=== PATIENT | male | born 1985 | race Hispanic/Latino ===

== ENCOUNTER 2018-11-22 14:26 | Emergency (ER) | payer SELFPAY ==
[2018-11-22] MEDS ORDERED: ATIVAN IV PRN (14:49)
--- NOTE | 2018-11-22 14:53 | Emergency Department Report ---
ED Alcohol HPI - General Chief Complaint: Alcohol Stated Complaint: DETOX Time Seen by Provider: 11/22/18 14:37 Source: patient Mode of arrival: Ambulatory Limitations: No Limitations - History of Present Illness Initial Comments: 33-year-old male with a past medical history of lupus, htn, antiphospholipid syndrome currently on Eliquis, liver disease, previous DVT/PE, "enlarged heart," hypertension, and alcohol abuse presents to the hospital requesting alcohol detox. Patient states he's been in and out of multiple hospitals recently with detox request. He states most recently he was at [facility] on November 14 it was provided a 30 day supply of Eliquis for his antiphospholipid syndrome. Patient typically drinks liquor daily and his last drink was about a half a gallon of vodka yesterday. Patient states he has not been accepted to inpatient detox programs to his lack of insurance. He was recently accepted to outpatient detox program and was scheduled to start treatment on the . She has a clear alcohol withdrawal tremors and seizures. Patient does not have any pain. Pt apparently takes a lot of meds but can not recall all the names or doses. - Related Data Home Medications Medication Instructions Recorded Confirmed Last Taken Apixaban [Eliquis] 5 mg PO BID 11/22/18 11/22/18 Unknown Famotidine [Pepcid] 20 mg PO BID 11/22/18 11/22/18 Unknown Lisinopril [Zestril] 20 mg PO QDAY 11/22/18 11/22/18 Unknown Metoprolol [Lopressor] 100 mg PO BID 11/22/18 11/22/18 Unknown amLODIPine [Norvasc] 5 mg PO DAILY 11/22/18 11/22/18 Unknown Allergies Allergy/AdvReac Type Severity Reaction Status Date / Time No Known Allergies Allergy Verified 11/22/18 15:57 ED Review of Systems ROS: Stated complaint: DETOX Other details as noted in HPI Comment: All other systems reviewed and negative ED Past Medical Hx - Past Medical History Hx Hypertension: Yes Hx Deep Vein Thrombosis: Yes Hx Pulmonary Embolism: Yes Hx Liver Disease: Yes Additional medical history: lupus. Antiphospholipid syndrome. liver dz. enlarged heart. alcohol abuse - Surgical History Past Surgical History?: No - Social History Smoking Status: Unknown if ever smoked Substance Use Type: Alcohol - Medications Home Medications: Home Medications Medication Instructions Recorded Confirmed Last Taken Type Apixaban [Eliquis] 5 mg PO BID 11/22/18 11/22/18 Unknown History Famotidine [Pepcid] 20 mg PO BID 11/22/18 11/22/18 Unknown History Lisinopril [Zestril] 20 mg PO QDAY 11/22/18 11/22/18 Unknown History Metoprolol [Lopressor] 100 mg PO BID 11/22/18 11/22/18 Unknown History amLODIPine [Norvasc] 5 mg PO DAILY 11/22/18 11/22/18 Unknown History ED Physical Exam - General Limitations: No Limitations - Other Other exam information: General: No limitations, patient is alert in no acute distress Head exam: Atraumatic, normocephalic Eyes exam: Normal appearance, pupils equal reactive to light, extraocular movements intact ENT: Moist mucous membrane Neck exam: Normal inspection, full range of motion, no meningismus nontender Respiratory exam: Clear to auscultation bilateral, no wheezes, rales, crackles Cardiovascular: Normal rate and rhythm, normal heart sounds Abdomen: Soft, nondistended, and nontender, with normal bowel sounds, no rebound, or guarding Extremity: Full range of motion normal inspection no deformity Back: Normal Inspection, full range of motion, no tenderness Neurologic: Alert, oriented x3, cranial nerves intact, no motor or sensory deficit, intention tremor noted Psychiatric: normal affect, normal mood Skin: Warm, dry, intact ED Course Vital Signs 11/22/18 11/22/18 11/22/18 14:43 15:51 17:24 Temperature 98 F Pulse Rate 117 H 112 H 119 H Respiratory 16 16 16 Rate Blood Pressure 137/95 146/89 150/93 [Left] O2 Sat by Pulse 96 93 95 Oximetry 11/22/18 11/22/18 18:19 19:12 Temperature Pulse Rate 117 H 125 H Respiratory 18 16 Rate Blood Pressure 195/111 [Left] O2 Sat by Pulse 96 96 Oximetry - Reevaluation(s) Reevaluation #1: 11/22/18 19:20 Patient remained tachycardic but has not been receiving Ativan and aggressive CIWA protocol assessments as ordered. I encouraged has to assess as ordered every hourly for stabilization of tachycardia and alcohol withdrawal symptoms. Patient was evaluated by mental health provider and would not endorse or deny suicidal ideation and therefore will be staffed with psychiatrist tomorrow. In the meantime we will continue [facility] protocol and monitoring for alcohol withdrawal symptoms 11/22/18 19:26 blood alcohol not initially ordered (no anion gap on bmp to suggest etoh intoxication) 11/22/18 19:44 Patient remains tachycardic but he also now states that he thinks he takes metoprolol. Patient takes Eliquis, lisinopril, metoprolol, and other medication that he cannot recall the name or the doses. Metoprolol 50 mg lisinopril 20 mg ordered since persistent tachycardia may be secondary to beta katy withdrawal. Patient states he did not take any of his medications today. Nurse will attempt to reach out to pharmacy or assist patient in reaching out to pharmacy to obtain his medication list. 11/22/18 20:12 Patient's home as obtained and that was updated. total of metoprolol 100 mg ordered since the patient standard dose twice a day. - Consultations Consultation #1: 11/22/18 19:21 Mental health provider Leslie evaluated patient and will staff a psychiatrist since patient does not endorse or deny suicidal ideation. ED Medical Decision Making - Lab Data Result diagrams: 11/22/18 14:40 11/22/18 14:46 Lab Results 11/22/18 11/22/18 11/22/18 Range/Units 14:37 14:40 14:46 WBC 6.9 (4.5-11.0) K/mm3 RBC 4.96 (3.65-5.03) M/mm3 Hgb 16.4 H (11.8-15.2) gm/dl Hct 47.6 H (35.5-45.6) % MCV 96 H (84-94) fl MCH 33 H (28-32) pg MCHC 35 H (32-34) % RDW 13.1 L (13.2-15.2) % Plt Count 239 (140-440) K/mm3 Lymph % (Auto) 44.2 H (13.4-35.0) % M[place]ormick % (Auto) 8.9 H (0.0-7.3) % Eos % (Auto) 1.9 (0.0-4.3) % Baso % (Auto) 1.0 (0.0-1.8) % Lymph # 3.0 (1.2-5.4) K/mm3 Mccormick # 0.6 (0.0-0.8) K/mm3 Eos # 0.1 (0.0-0.4) K/mm3 Baso # 0.1 (0.0-0.1) K/mm3 Seg Neutrophils % 44.0 (40.0-70.0) % Seg Neutrophils # 3.0 (1.8-7.7) K/mm3 PT (12.2-14.9) Sec. INR (0.87-1.13) APTT (24.2-36.6) Sec. Sodium 144 (137-145) mmol/L Potassium 3.4 L (3.6-5.0) mmol/L Chloride 103.4 (98-107) mmol/L Carbon Dioxide 24 (22-30) mmol/L Anion Gap 20 mmol/L BUN 10 (9-20) mg/dL Creatinine 0.6 L (0.8-1.5) mg/dL Estimated GFR > 60 ml/min BUN/Creatinine Ratio 17 % Glucose 93 (75-100) mg/dL Calcium 7.9 L (8.4-10.2) mg/dL Magnesium 1.30 L (1.7-2.3) mg/dL Total Bilirubin 0.70 (0.1-1.2) mg/dL AST 132 H (5-40) units/L ALT 131 H (7-56) units/L Alkaline Phosphatase 64 (35-129) units/L Total Protein 7.3 (6.3-8.2) g/dL Albumin 4.1 (3.9-5) g/dL Albumin/Globulin Ratio 1.3 % Urine Color (Yellow) Urine Turbidity (Clear) Urine pH (5.0-7.0) Ur Specific [place] (1.003-1.030) Urine Protein (Negative) mg/dL Urine Glucose (UA) (Negative) mg/dL Urine Ketones (Negative) mg/dL Urine Blood (Negative) Urine Nitrite (Negative) Urine Bilirubin (Negative) Urine Urobilinogen (<2.0) mg/dL Ur Leukocyte Esterase (Negative) Urine WBC (Auto) (0.0-6.0) /HPF Urine RBC (Auto) (0.0-6.0) /HPF Urine Bacteria (Auto) (Negative) /HPF Hyaline Casts /LPF Urine Mucus /HPF Urine Opiates Screen Urine Methadone Screen Ur Barbiturates Screen Ur Phencyclidine Scrn Ur Amphetamines Screen U Benzodiazepines Scrn Urine Cocaine Screen U Marijuana (THC) Screen Drugs of Abuse Note 11/22/18 11/22/18 11/22/18 Range/Units 15:30 16:00 16:19 WBC (4.5-11.0) K/mm3 RBC (3.65-5.03) M/mm3 Hgb (11.8-15.2) gm/dl Hct (35.5-45.6) % MCV (84-94) fl MCH (28-32) pg MCHC (32-34) % RDW (13.2-15.2) % Plt Count (140-440) K/mm3 Lymph % (Auto) (13.4-35.0) % Mccormick % (Auto) (0.0-7.3) % Eos % (Auto) (0.0-4.3) % Baso % (Auto) (0.0-1.8) % Lymph # (1.2-5.4) K/mm3 Mccormick # (0.0-0.8) K/mm3 Eos # (0.0-0.4) K/mm3 Baso # (0.0-0.1) K/mm3 Seg Neutrophils % (40.0-70.0) % Seg Neutrophils # (1.8-7.7) K/mm3 PT 13.4 (12.2-14.9) Sec. INR 1.05 (0.87-1.13) APTT 24.8 (24.2-36.6) Sec. Sodium (137-145) mmol/L Potassium (3.6-5.0) mmol/L Chloride (98-107) mmol/L Carbon Dioxide (22-30) mmol/L Anion Gap mmol/L BUN (9-20) mg/dL Creatinine (0.8-1.5) mg/dL Estimated GFR ml/min BUN/Creatinine Ratio % Glucose (75-100) mg/dL Calcium (8.4-10.2) mg/dL Magnesium (1.7-2.3) mg/dL Total Bilirubin (0.1-1.2) mg/dL AST (5-40) units/L ALT (7-56) units/L Alkaline Phosphatase (35-129) units/L Total Protein (6.3-8.2) g/dL Albumin (3.9-5) g/dL Albumin/Globulin Ratio % Urine Color Yellow (Yellow) Urine Turbidity Clear (Clear) Urine pH 5.0 (5.0-7.0) Ur Specific [place] 1.024 (1.003-1.030) Urine Protein 30 mg/dl (Negative) mg/dL Urine Glucose (UA) Neg (Negative) mg/dL Urine Ketones 20 (Negative) mg/dL Urine Blood Neg (Negative) Urine Nitrite Neg (Negative) Urine Bilirubin Neg (Negative) Urine Urobilinogen < 2.0 (<2.0) mg/dL Ur Leukocyte Esterase Neg (Negative) Urine WBC (Auto) 1.0 (0.0-6.0) /HPF Urine RBC (Auto) 1.0 (0.0-6.0) /HPF Urine Bacteria (Auto) 1+ (Negative) /HPF Hyaline Casts 1 /LPF Urine Mucus 2+ /HPF Urine Opiates Screen Presumptive negative Urine Methadone Screen Presumptive negative Ur Barbiturates Screen Presumptive negative Ur Phencyclidine Scrn Presumptive negative Ur Amphetamines Screen Presumptive negative U Benzodiazepines Scrn Presumptive positive Urine Cocaine Screen Presumptive negative U Marijuana (THC) Screen Presumptive negative Drugs of Abuse Note Disclamer - EKG Data -: EKG Interpreted by Sc EKG shows normal: sinus rhythm, axis (qrs 49), QRS complexes (qrsd 77), ST-T waves (no stemi) Rate: tachycardia (122) - Medical Decision Making pt received IV Mag and Po Kcl for hypomagnesemia and hypokalemia Banana bag and IVF also provided (UA suggests dehydration) pt on CIWA protocol and receiving IV ativan case d/w MENTAL yvonne and pt will be seen by psychiatrist tomorrow. tachycardia in ed may also be due to betablocker withdrawal Metoprolol 100 mg given since patient takes this dose at home did not have any today. pt s/o to Dr ethan horner - Differential Diagnosis alcohol withdrawal, alcohol abuse, electrolyte abnormality Critical Care Time: No Critical care attestation.: If time is entered above; I have spent that time in minutes in the direct care of this critically ill patient, excluding procedure time. ED Disposition Clinical Impression: Alcohol withdrawal, Alcohol abuse, Hypertension, Lupus, Antiphospholipid syndrome, History of DVT (deep vein thrombosis), History of pulmonary embolism, Current use of exterminator helper anticoagulation Disposition: DC/TX-65 PSY HOSP/PSY UNIT Is pt being admited?: No Condition: Stable Time of Disposition: 20:17 (awaiting mental health disposition and assessment)
[2018-11-22 15:02] LABS: Basophils # (Auto) 0.1 K/mm3 (0.0-0.1); Eosinophils # (Auto) 0.1 K/mm3 (0.0-0.4); Eosinophils % (Auto) 1.9 % (0.0-4.3); Hematocrit 47.6 % (35.5-45.6); Hemoglobin 16.4 gm/dl (11.8-15.2); Lymphocytes % (Auto) 44.2 % (13.4-35.0); Mean Corpuscular HGB Conc 35 % (32-34); Mean Corpuscular Volume 96 fl (84-94); Monocytes # (Auto) 0.6 K/mm3 (0.0-0.8); Monocytes % (Auto) 8.9 % (0.0-7.3); Platelet Count 239 K/mm3 (140-440); Red Blood Count 4.96 M/mm3 (3.65-5.03); Red Cell Distribution Width 13.1 % (13.2-15.2)
[2018-11-22] MEDS: ATIVAN IV PRN ×4 (15:02→23:54)
[2018-11-22 15:21] LABS: Alanine Aminotransferase 131 units/L (7-56); Albumin 4.1 g/dL (3.9-5); BUN/Creatinine Ratio 17; Blood Urea Nitrogen 10 mg/dL (9-20); Calcium 7.9 mg/dL (8.4-10.2); Hemolysis Index 7
[2018-11-22] MEDS ORDERED: VITAMIN B-1 100 MG, FOLVITE 1 MG, INFUVITE 10 ML in NACL 0.9% 1000 ML 1,000 ML IV ONE (16:00)
[2018-11-22 16:06] LABS: INR 1.05 (0.87-1.13); Partial Thromboplastin Time 24.8 Sec. (24.2-36.6)
[2018-11-22] MEDS ORDERED: K-DUR PO ONE (16:19)
[2018-11-22] MEDS ORDERED: MAGNESIUM SULFATE 2GM/50ML 2 GM/50 ML BAG IV ONE (16:19)
[2018-11-22 16:33] LABS: Amphetamine Screen,Urine PRESUMPTIVE NEGATIVE; Cannabinoid Screen,Urine PRESUMPTIVE NEGATIVE; Cocaine Screen,Urine PRESUMPTIVE NEGATIVE; Methadone Screen,Urine PRESUMPTIVE NEGATIVE; Opiate Screen,Urine PRESUMPTIVE NEGATIVE
[2018-11-22 16:36] LABS: Bacteria,Urine 1+ /HPF (Negative); Bilirubin,Urine NEG (Negative); Blood,Urine NEG (Negative); Color,Urine Yellow (Yellow); Hyaline Casts,Urine 1 /LPF; Mucus,Urine 2+ /HPF; Urobilinogen,Urine < 2.0 mg/dL (<2.0)
[2018-11-22 17:23] LABS: Benzodiazepines Screen,Urine PRESUMPTIVE POSITIVE
[2018-11-22] MEDS ORDERED: NACL 0.9% 1000 ML 1,000 ML IV ONE (19:28)
[2018-11-22] MEDS ORDERED: CATAPRES PO ONE (19:37)
[2018-11-22] MEDS ORDERED: LOPRESSOR PO ONE ×2 (19:42→20:12)
[2018-11-22] MEDS ORDERED: ZESTRIL PO ONE (19:43)
[2018-11-22] MEDS: PEPCID PO SCH (23:51)
[2018-11-23] MEDS: ELIQUIS PO SCH ×2 (01:38→09:58)
[2018-11-23] MEDS ORDERED: MOTRIN PO ONE (02:33)
--- NOTE | 2018-11-23 08:52 | XRay Report ---
CHEST 1 VIEW INDICATION / CLINICAL INFORMATION: Tachypnea. COMPARISON: None available. FINDINGS: SUPPORT DEVICES: None. HEART / MEDIASTINUM: No significant abnormality. LUNGS / PLEURA: No significant pulmonary or pleural abnormality. No pneumothorax. ADDITIONAL FINDINGS: No significant additional findings. IMPRESSION: 1. No acute findings. Signer Name: Pantera Gabriel MD Signed: 11/23/2018 8:48 AM Workstation Name: Real Time [id number]
[2018-11-23] MEDS ORDERED: NORMODYNE IV ONE (09:47)
[2018-11-23] MEDS: PEPCID PO SCH (09:59)
[2018-11-23] MEDS ORDERED: ZESTRIL PO SCH (10:00)
[2018-11-23] MEDS ORDERED: NORVASC PO SCH (10:00)
[2018-11-23 11:14] VITALS: BP 119/77
== END 2018-11-23 11:50 ==
LOC: ED 14:26
DX: F10.239 Alcohol dependence with withdrawal, unspecified (principal); I10 Essential (primary) hypertension; M32.9 Systemic lupus erythematosus, unspecified; D68.61 Antiphospholipid syndrome; Z79.01 Long term (current) use of anticoagulants; Z86.718 Personal history of other venous thrombosis and embolism; Z86.711 Personal history of pulmonary embolism
CPT/HCPCS: 36415; 71045; 80053; 80307; 81001; 83735; 85025; 85610; 85730; 93005; 93010; 96365; 96366; 96368; 96375; 96376; 99284; G0480; J2060; J3411; J3475; J7030; 80320

== ENCOUNTER 2019-01-04 13:22 | Emergency (ER) | payer MEDICAID, OTHER ==
[2019-01-04] MEDS ORDERED: ATIVAN PO PRN ×2 (14:21)
[2019-01-04 14:50] LABS: Basophils % (Auto) 0.7 % (0.0-1.8); Eosinophils # (Auto) 0.1 K/mm3 (0.0-0.4); Eosinophils % (Auto) 1.3 % (0.0-4.3); Hematocrit 46.2 % (35.5-45.6); Hemoglobin 16.3 gm/dl (11.8-15.2); Lymphocytes # (Auto) 2.5 K/mm3 (1.2-5.4); Mean Corpuscular HGB Conc 35 % (32-34); Mean Corpuscular Volume 93 fl (84-94); Monocytes # (Auto) 0.4 K/mm3 (0.0-0.8); Platelet Count 204 K/mm3 (140-440); Red Blood Count 4.95 M/mm3 (3.65-5.03); Red Cell Distribution Width 13.4 % (13.2-15.2)
[2019-01-04 14:52] LABS: Bilirubin,Urine NEG (Negative); Blood,Urine NEG (Negative); Color,Urine Amber (Yellow); Mucus,Urine 3+ /HPF
[2019-01-04 14:57] LABS: Amphetamine Screen,Urine PRESUMPTIVE NEGATIVE; Cannabinoid Screen,Urine PRESUMPTIVE NEGATIVE; Cocaine Screen,Urine PRESUMPTIVE NEGATIVE; Methadone Screen,Urine PRESUMPTIVE NEGATIVE; Opiate Screen,Urine PRESUMPTIVE NEGATIVE
[2019-01-04 15:08] LABS: Benzodiazepines Screen,Urine PRESUMPTIVE POSITIVE
[2019-01-04 15:16] LABS: Alanine Aminotransferase 96 units/L (7-56); Albumin 4.4 g/dL (3.9-5); BUN/Creatinine Ratio 11; Blood Urea Nitrogen 8 mg/dL (9-20); Calcium 8.8 mg/dL (8.4-10.2); Hemolysis Index 10
--- NOTE | 2019-01-04 15:56 | Emergency Department Report ---
<JANAYSANTINO C - Last Filed: 01/04/19 19:47> ED Alcohol HPI - General Chief Complaint: Alcohol Stated Complaint: MENTAL EVAL Time Seen by Provider: 01/04/19 13:50 - Related Data Home Medications Medication Instructions Recorded Confirmed Last Taken Apixaban [Eliquis] 5 mg PO BID 11/22/18 11/22/18 Unknown Famotidine [Pepcid] 20 mg PO BID 11/22/18 11/22/18 Unknown Lisinopril [Zestril] 20 mg PO QDAY 11/22/18 11/22/18 Unknown Metoprolol [Lopressor] 100 mg PO BID 11/22/18 11/22/18 Unknown amLODIPine [Norvasc] 5 mg PO DAILY 11/22/18 11/22/18 Unknown Allergies Allergy/AdvReac Type Severity Reaction Status Date / Time No Known Allergies Allergy Verified 11/22/18 15:57 ED Past Medical Hx - Medications Home Medications: Home Medications Medication Instructions Recorded Confirmed Last Taken Type Apixaban [Eliquis] 5 mg PO BID 11/22/18 11/22/18 Unknown History Famotidine [Pepcid] 20 mg PO BID 11/22/18 11/22/18 Unknown History Lisinopril [Zestril] 20 mg PO QDAY 11/22/18 11/22/18 Unknown History Metoprolol [Lopressor] 100 mg PO BID 11/22/18 11/22/18 Unknown History amLODIPine [Norvasc] 5 mg PO DAILY 11/22/18 11/22/18 Unknown History ED Course - Reevaluation(s) Reevaluation #1: 01/04/19 19:46 After Mental health review, patient does not meet criteria for inpatient treatment. Pt did not have any sounds of alcohol withdrawal symptoms despite receiving Ativan 4 mg. Patient was agitated at the time of Ativan administration. He was agitated because his ride would not come pick him up. I went to speak to patient and he is with his frustration of not getting help. He states he is depressed but denies suicidal or homicidal ideation. At this time patient has secured a ride. Gait is steady, speech is clear and not slurred, no signs of respiratory depression. Patient will be discharged with outpatient resources. ED Medical Decision Making - Lab Data Result diagrams: 01/04/19 14:22 08/24/19 14:22 Lab Results 01/04/19 01/04/19 01/04/19 Range/Units 14:22 14:22 14:22 WBC 5.5 (4.5-11.0) K/mm3 RBC 4.95 (3.65-5.03) M/mm3 Hgb 16.3 H (11.8-15.2) gm/dl Hct 46.2 H (35.5-45.6) % MCV 93 (84-94) fl MCH 33 H (28-32) pg MCHC 35 H (32-34) % RDW 13.4 (13.2-15.2) % Plt Count 204 (140-440) K/mm3 Lymph % (Auto) 45.0 H (13.4-35.0) % [place] % (Auto) 8.0 H (0.0-7.3) % Eos % (Auto) 1.3 (0.0-4.3) % Baso % (Auto) 0.7 (0.0-1.8) % Lymph # 2.5 (1.2-5.4) K/mm3 [place] # 0.4 (0.0-0.8) K/mm3 Eos # 0.1 (0.0-0.4) K/mm3 Baso # 0.0 (0.0-0.1) K/mm3 Seg Neutrophils % 45.0 (40.0-70.0) % Seg Neutrophils # 2.5 (1.8-7.7) K/mm3 Sodium 143 (137-145) mmol/L Potassium 3.8 (3.6-5.0) mmol/L Chloride 98.4 (98-107) mmol/L Carbon Dioxide 27 (22-30) mmol/L Anion Gap 21 mmol/L BUN 8 L (9-20) mg/dL Creatinine 0.7 L (0.8-1.5) mg/dL Estimated GFR > 60 ml/min BUN/Creatinine Ratio 11 % Glucose 112 H (75-100) mg/dL Calcium 8.8 (8.4-10.2) mg/dL Magnesium (1.7-2.3) mg/dL Total Bilirubin 0.50 (0.1-1.2) mg/dL AST 115 H (5-40) units/L ALT 96 H (7-56) units/L Alkaline Phosphatase 65 (35-129) units/L Total Protein 7.8 (6.3-8.2) g/dL Albumin 4.4 (3.9-5) g/dL Albumin/Globulin Ratio 1.3 % Lipase (13-60) units/L Urine Color (Yellow) Urine Turbidity (Clear) Urine pH (5.0-7.0) Ur Specific [place] (1.003-1.030) Urine Protein (Negative) mg/dL Urine Glucose (UA) (Negative) mg/dL Urine Ketones (Negative) mg/dL Urine Blood (Negative) Urine Nitrite (Negative) Urine Bilirubin (Negative) Urine Urobilinogen (<2.0) mg/dL Ur Leukocyte Esterase (Negative) Urine WBC (Auto) (0.0-6.0) /HPF Urine RBC (Auto) (0.0-6.0) /HPF U Epithel Cells (Auto) (0-13.0) /HPF Urine Mucus /HPF Urine Opiates Screen Urine Methadone Screen Ur Barbiturates Screen Ur Phencyclidine Scrn Ur Amphetamines Screen U Benzodiazepines Scrn Urine Cocaine Screen U Marijuana (THC) Screen Drugs of Abuse Note Plasma/Serum Alcohol 0.22 H (0-0.07) % 01/04/19 01/04/19 01/04/19 Range/Units 14:22 14:25 14:25 WBC (4.5-11.0) K/mm3 RBC (3.65-5.03) M/mm3 Hgb (11.8-15.2) gm/dl Hct (35.5-45.6) % MCV (84-94) fl MCH (28-32) pg MCHC (32-34) % RDW (13.2-15.2) % Plt Count (140-440) K/mm3 Lymph % (Auto) (13.4-35.0) % [place] % (Auto) (0.0-7.3) % Eos % (Auto) (0.0-4.3) % Baso % (Auto) (0.0-1.8) % Lymph # (1.2-5.4) K/mm3 [place] # (0.0-0.8) K/mm3 Eos # (0.0-0.4) K/mm3 Baso # (0.0-0.1) K/mm3 Seg Neutrophils % (40.0-70.0) % Seg Neutrophils # (1.8-7.7) K/mm3 Sodium (137-145) mmol/L Potassium (3.6-5.0) mmol/L Chloride (98-107) mmol/L Carbon Dioxide (22-30) mmol/L Anion Gap mmol/L BUN (9-20) mg/dL Creatinine (0.8-1.5) mg/dL Estimated GFR ml/min BUN/Creatinine Ratio % Glucose (75-100) mg/dL Calcium (8.4-10.2) mg/dL Magnesium 1.70 (1.7-2.3) mg/dL Total Bilirubin (0.1-1.2) mg/dL AST (5-40) units/L ALT (7-56) units/L Alkaline Phosphatase (35-129) units/L Total Protein (6.3-8.2) g/dL Albumin (3.9-5) g/dL Albumin/Globulin Ratio % Lipase 38 (13-60) units/L Urine Color Radha (Yellow) Urine Turbidity Slightly-cloudy (Clear) Urine pH 5.0 (5.0-7.0) Ur Specific [place] 1.021 (1.003-1.030) Urine Protein 100 mg/dl (Negative) mg/dL Urine Glucose (UA) Neg (Negative) mg/dL Urine Ketones Tr (Negative) mg/dL Urine Blood Neg (Negative) Urine Nitrite Neg (Negative) Urine Bilirubin Neg (Negative) Urine Urobilinogen 2.0 (<2.0) mg/dL Ur Leukocyte Esterase Neg (Negative) Urine WBC (Auto) 5.0 (0.0-6.0) /HPF Urine RBC (Auto) 1.0 (0.0-6.0) /HPF U Epithel Cells (Auto) 1.0 (0-13.0) /HPF Urine Mucus 3+ /HPF Urine Opiates Screen Presumptive negative Urine Methadone Screen Presumptive negative Ur Barbiturates Screen Presumptive negative Ur Phencyclidine Scrn Presumptive negative Ur Amphetamines Screen Presumptive negative U Benzodiazepines Scrn Presumptive positive Urine Cocaine Screen Presumptive negative U Marijuana (THC) Screen Presumptive negative Drugs of Abuse Note Disclamer Plasma/Serum Alcohol (0-0.07) % ED Disposition Clinical Impression: Chronic alcohol abuse Disposition: DC/TX-65 PSY HOSP/PSY UNIT Is pt being admited?: No Condition: Stable Instructions: Abuse of Alcohol (ED) Additional Instructions: Follow-up with the resources provided. Return is symptoms worsen as indicated by your discharge instructions. Referrals: PRIMARY CARE, [Primary Care Provider] - 3-[address] [facility] [Outside] - 3-5 Days [facility] [Provider Group] - 3-5 Days Time of Disposition: 19:47 <CHUCK DEUTSCH - Last Filed: 01/05/19 08:21> ED Alcohol HPI - General Source: patient, EMS Mode of arrival: Stretcher Limitations: No Limitations - History of Present Illness Initial Comments: 33 yo M w/ hx of chronic alcoholism presents to ED requesting detox. Pt states last drink was at 5AM. States he was recently at [place] for detox, upon discharge from there, he states he immediately went and got a drink. Complaint: alcohol dependence, desires rehab Chronic Alcohol Use: Yes Recent Trauma: No Associated Symptoms: denies other symptoms Treatments Prior to Arrival: none ED Review of Systems ROS: Stated complaint: MENTAL EVAL Other details as noted in HPI Comment: All other systems reviewed and negative Psychiatric: denies: homicidal thoughts, suicidal thoughts ED Past Medical Hx - Past Medical History Hx Hypertension: Yes Hx Deep Vein Thrombosis: Yes Hx Pulmonary Embolism: Yes Hx Liver Disease: Yes Additional medical history: lupus. Antiphospholipid syndrome. liver dz. enlarged heart. alcohol abuse - Social History Smoking Status: Never Smoker Substance Use Type: Alcohol ED Physical Exam - General Limitations: No Limitations General appearance: alert, in no apparent distress - Head Head exam: Present: atraumatic, normocephalic - Eye Eye exam: Present: normal appearance, PERRL, EOMI - ENT ENT exam: Present: mucous membranes moist - Neck Neck exam: Present: normal inspection - Respiratory Respiratory exam: Present: normal lung sounds bilaterally. Absent: respiratory distress - Cardiovascular Cardiovascular Exam: Present: normal rhythm, tachycardia - GI/Abdominal GI/Abdominal exam: Present: soft. Absent: distended, tenderness - Extremities Exam Extremities exam: Present: normal inspection - Neurological Exam Neurological exam: Present: alert, oriented X3, CN II-XII intact, normal gait, other (no resting tremor noted). Absent: motor sensory deficit - Psychiatric Psychiatric exam: Present: normal affect, normal mood - Skin Skin exam: Present: warm, dry, intact, normal color ED Course Vital Signs 01/04/19 01/04/19 01/04/19 13:59 18:41 19:00 Temperature 98.2 F 98.3 F Pulse Rate 104 H 91 H Respiratory 18 18 19 Rate Blood Pressure 115/77 151/98 [Left] O2 Sat by Pulse 96 99 98 Oximetry 01/04/19 19:56 Temperature Pulse Rate 111 H Respiratory 11 L Rate Blood Pressure 133/86 [Left] O2 Sat by Pulse 96 Oximetry ED Medical Decision Making - Lab Data Result diagrams: 01/04/19 14:22 01/04/19 14:22 - Medical Decision Making 33 yo M w/ hx of chronic alcohol abuse. Pt not currently showing any signs of withdrawal. Pt is not hypertensive or tachycardic. No tremor on exam. Alcohol level is currently 220. Pt is pending mental health evaluation. - Differential Diagnosis chronic alcohol abuse Critical care attestation.: If time is entered above; I have spent that time in minutes in the direct care of this critically ill patient, excluding procedure time. ED Disposition Is pt being admited?: No
[2019-01-04 20:00] VITALS: BP 133/86
== END 2019-01-04 20:01 ==
LOC: ED 13:22 → EEVIPCON 13:22 → ED 20:01
DX: F10.239 Alcohol dependence with withdrawal, unspecified (principal); I10 Essential (primary) hypertension; Z86.718 Personal history of other venous thrombosis and embolism; Z86.711 Personal history of pulmonary embolism
CPT/HCPCS: 36415; 80053; 80307; 80320; 81001; 83690; 83735; 85025; G0480